=== PATIENT | female | born 1930 | race Caucasian/White ===

== ENCOUNTER 2016-12-13 13:55 | Inpatient (IN) ==
[2016-12-13] MEDS ORDERED: ASPIRIN PO STA (14:56)
[2016-12-13 15:16] LABS: BASO% 0.3 % (0.0-0.8); EOS# 0.06 X1000 (0.0-0.7); EOS% 0.9 % (0.0-10.0); HEMATOCRIT 40.3 % (37.0-47.0); HEMOGLOBIN 13.8 g/dL (12.0-16.0); LYMPH# 0.68 X1000 (1.2-3.4); LYMPH% 10.4 % (20.5-51.1); MANUAL DIFF NEEDED? NO; MCH 30.7 PG (27-31); MCHC 34.2 g/dL (33-37); MCV 89.8 FL (81-99); MONO# 0.43 X1000 (0.11-0.59); MONO% 6.6 % (1.7-9.3); NEUT% 81.8 % (42.2-75.2); PLT 144 X1000 (130-400); RBC 4.49 XMIL (4.2-5.4)
--- NOTE | 2016-12-13 15:20 | Diag Imaging Result Doc PS360 ---
CHEST-2 VIEWS - 12/13/2016 INDICATION: CP TECHNIQUE: COMPARISON: 03/21/2016 FINDINGS: There are some stable minimal peripheral pulmonary scarring particularly at the left lung base. No new or focal infiltrates. Heart size is normal. No pneumothorax or pleural effusion. IMPRESSION: No acute disease or change from prior. Electronically signed by Matt Lovett 12/13/2016 3:18 PM
--- NOTE | 2016-12-13 15:30 | EKG Report ---
Test Performed on : 12/13/2016 2:03:34 PM Test Reason : cp Blood Pressure : / mmHG Vent. Rate : 063 BPM Atrial Rate : 063 BPM P-R Int : 164 ms QRS Dur : 076 ms QT Int : 440 ms P-R-T Axes : 096 -12 042 degrees QTc Int : 450 ms Normal sinus rhythm. Moderate voltage criteria for LVH, may be normal variant Borderline ECG When compared with ECG of 21-MAR-2016 22:28, No significant change was found Unconfirmed Result
[2016-12-13] MEDS ORDERED: NITROGLYCERIN TOP ONE (15:41)
[2016-12-13 15:42] LABS: AGAP 11; ALBUMIN 4.2 g/dL (3.5-5.0); ALKALINE PHOSPHATASE 82 U/L (32-104); BUN 13 mg/dL (8-22); CALCIUM 10.2 mg/dL (8.8-10.2); CHLORIDE 99 mmol/L (98-107); CK PROFILE 54 U/L (24-173); COSMO 284; GOT 194 U/L (10-30); GPT 72 U/L (10-36); MAGNESIUM 1.7 mg/dL (1.5-2.7); POTASSIUM 3.8 mmol/L (3.5-5.1); SODIUM 141 mmol/L (136-145); TCO2 31 mmol/L (25-35); TOTAL BILIRUBIN 1.94 mg/dL (0.20-1.00); TOTAL PROTEIN 6.2 g/dL (6.3-8.3)
--- NOTE | 2016-12-13 16:56 | PROVIDER DOCUMENTATION ---
This chart was entered by Aleksandar Riddle Scribe, acting as scribe for Stanley Castañeda CRNP. HPI-Chest Pain - General Chief Complaint: Chest Pain Stated Complaint: CP Time Seen by Provider: 12/13/16 15:55 Source: patient Allergies/Adverse Reactions: Patient Allergies Allergy/AdvReac Type Severity Reaction Status Date / Time No Known Allergies Allergy Verified 12/13/16 14:40 Home Medications: Home Medication List Medication Instructions Recorded Confirmed Last Taken Type Amlodipine [Norvasc] 5 mg PO HS 01/07/16 12/13/16 12/12/16 History Metoprolol [Lopressor] 25 mg PO QAM 01/07/16 12/13/16 12/13/16 08:00 History Vit C/Dl-E AC/Lut/Copper/Znox 1 each PO BID 01/07/16 12/13/16 12/13/16 08:00 History [Preservision Softgel] ATORVAstatin [Lipitor] 20 mg PO QAM 02/24/16 12/13/16 12/13/16 08:00 History Lisinopril 20 mg PO QAM 02/24/16 12/13/16 12/13/16 08:00 History Lorazepam 1 mg PO QHS 02/24/16 12/13/16 12/12/16 History Multivitamin [Multivitamins] 1 each PO QAM 02/24/16 12/13/16 12/13/16 08:00 History Acetaminophen with Codeine 1 each PO Q4H PRN PRN 12/13/16 12/13/16 Unknown History [Tylenol with Codeine #3] Bupropion HCl [Bupropion Xl] 150 mg PO DAILY 12/13/16 12/13/16 12/13/16 08:00 History Cholecalciferol (Vitamin D3) 400 unit PO DAILY 12/13/16 12/13/16 12/13/16 08:00 History [Vitamin D] Escitalopram [Lexapro] 20 mg PO DAILY 12/13/16 12/13/16 12/13/16 08:00 History Hydrocodone/Acetaminophen [[place] 1 each PO Q4H PRN 12/13/16 12/13/16 Unknown History 5-325 Tablet] Loperamide [Imodium] 2 mg PO PRN PRN 12/13/16 12/13/16 Unknown History Risedronate [Actonel] 150 mg PO DIRECTED 12/13/16 12/13/16 11/12/16 History - History of Present Illness-CP Nature of Presenting Problem: Patient is a 86 y/o F that presents to the ER with with chest pain that radiates to her back. symptoms began this am. Denies shortness of breath, n/v, or diaphoresis. reports taken 2 nitro with mild relief but not complete relief of symptoms. History of CAD with stents. Location: reports: substernal Chest Pain Radiation: reports: back Quality of Pain: reports: aching Severity in ED: moderate Onset/Duration: abrupt, this morning Timing: still present, constant Context/Activities at Onset: reports: none Modifying Factors: improves with: nothing Associated Symptoms: reports: back pain. denies: denies symptoms, diaphoresis, dizziness, fever/chills, nausea, shortness of breath, vomiting Nitro Today/Relief: 0.4 mg x 2, provided at home, mild relief Aspirin Treatment Today: 325 mg x 1, provided by ED Prior Chest Pain/Cardiac Workup: reports: cardiac cath (with stents) Similar Symptoms Previously?: Yes Recently Seen Here or By Another Healthcare Provider: No Review of Systems - Adult - REVIEW OF SYSTEMS - ADULT Constitutional: denies: chills, fever Eyes: reports: no symptoms reported Ears, Nose, Mouth & Throat: denies: ear pain, sinus problem, throat pain, throat swelling Cardiovascular: reports: chest pain. denies: palpitations, syncope Respiratory: denies: cough, shortness of breath, wheezing Gastrointestinal: denies: abdominal pain, diarrhea, nausea, vomiting Genitourinary: reports: no symptoms reported Musculoskeletal: reports: back pain. denies: joint pain, neck pain Integumentary: reports: no symptoms reported Neurological: reports: no symptoms reported Psychiatric: reports: no symptoms reported Endocrine: reports: no symptoms reported Hematologic/Lymphatic: reports: no symptoms reported Allergic/Immunologic: reports: no symptoms reported All Other Systems: Reviewed and Negative Past History - Adult - PAST MEDICAL HISTORY-ADULT Review of Records: reports: Old Records Reviewed, Nursing Assessment Review, Medications Reviewed Cardiovascular: reports: CAD, HTN, hyperlipidemia Musculoskeletal: reports: spinal fracture (t12 compression) Neurological: reports: TIA, other (sub-dural hematoma) Psychiatric: reports: anxiety, depression Other Conditions: reports: other cancer (melanoma) - PRIOR SURGERIES/PROCEDURES Surgical/Procedure History: reports: cardiac stent, back/neck, other (skin cancer removed) - PRIOR HOSPITALIZATIONS Prior Hospitalizations: reports: none - IMMUNIZATION STATUS Childhood Immunizations: See Nurse Assessment Flu Vaccine: See Nurse Assessment - FAMILY HISTORY Family History: reviewed, not pertinent - SOCIAL HISTORY Smoking: non-smoker Living Situation: family Physical Exam-General - PHYSICAL EXAM-ADULT Initial Vital Signs Reviewed: Yes - CONSTITUTIONAL General Appearance: alert, no apparent distress - EYES Eyes: PERRL/EOMI, pink conjunctivae - HEAD, EARS, NOSE, MOUTH & THROAT HENMT: normocephalic/atraumatic, moist mucous membranes, normal ENT inspection - NECK Neck: full range of motion, normal inspection - RESPIRATORY Respiratory: lungs clear, normal breath sounds, no respiratory distress, no accessory muscle use - CARDIOVASCULAR Cardiovascular: regular rate, rhythm, no gallop, no murmur - GASTROINTESTINAL (ABDOMEN) Abdominal Exam: normal bowel sounds, non tender, soft - MUSCULOSKELETAL Extremity: normal range of motion, normal inspection, no pedal edema - SKIN Integumentary: normal color, warm/dry - NEUROLOGIC Neurologic: grossly normal, no motor/sensory deficits - PSYCHIATRIC Psych/Mental Status: normal mood/affect, normal thought content, normal thought process, oriented x 3 Progress - PLAN OF CARE/RESULTS Progress/Plan/Lab Results: Vital Signs - 8 hr 12/13/16 13:59 12/13/16 14:27 12/13/16 15:31 Temperature 98.0 F Pulse Rate 60 64 64 Respiratory Rate 18 14 18 Blood Pressure 153/69 190/76 205/125 O2 Sat by Pulse Oximetry 99 94 L 96 12/13/16 16:39 Temperature Pulse Rate 62 Respiratory Rate 14 Blood Pressure 188/165 O2 Sat by Pulse Oximetry 93 L Laboratory Results - last 24 hr 12/13/16 12/13/16 12/13/16 14:30 14:30 14:30 WBC RBC Hgb Hct MCV MCH MCHC RDW Std Deviation Plt Count MPV Immature Gran % (Auto) Neut % (Auto) Lymph % (Auto) [place] % (Auto) Eos % (Auto) Baso % (Auto) Immature Gran # (Auto) Neut # (Auto) Lymph # (Auto) [place] # (Auto) Eos # (Auto) Baso # (Auto) Sodium 141 Potassium 3.8 Chloride 99 Carbon Dioxide 31 Anion Gap 11 BUN 13 Creatinine 0.8 Estimated GFR/1.73 m2 > 60 BUN/Creatinine Ratio 16 Glucose 138 H Calculated Osmolality 284 Calcium 10.2 Magnesium 1.7 Total Bilirubin 1.94 H AST 194 H ALT 72 H Alkaline Phosphatase 82 Creatine Kinase 54 Troponin T < 0.010 Ghi-L-Hzehkfvkmpq Pept 570 H Total Protein 6.2 L Albumin 4.2 Globulin 2.0 Albumin/Globulin Ratio 2.1 12/13/16 15:03 WBC 6.54 RBC 4.49 Hgb 13.8 Hct 40.3 MCV 89.8 MCH 30.7 MCHC 34.2 RDW Std Deviation 13.9 Plt Count 144 MPV 10.0 Immature Gran % (Auto) 0.0 Neut % (Auto) 81.8 H Lymph % (Auto) 10.4 L [place] % (Auto) 6.6 Eos % (Auto) 0.9 Baso % (Auto) 0.3 Immature Gran # (Auto) 0.00 Neut # (Auto) 5.35 Lymph # (Auto) 0.68 L [place] # (Auto) 0.43 Eos # (Auto) 0.06 Baso # (Auto) 0.02 Sodium Potassium Chloride Carbon Dioxide Anion Gap BUN Creatinine Estimated GFR/1.73 m2 BUN/Creatinine Ratio Glucose Calculated Osmolality Calcium Magnesium Total Bilirubin AST ALT Alkaline Phosphatase Creatine Kinase Troponin T Hxk-K-Decsyzmvzym Pept Total Protein Albumin Globulin Albumin/Globulin Ratio Orders Category Date Time Status Cardiac Monitoring DIRECTED Care 12/13/16 14:56 Active Saline Loc NOW Care 12/13/16 14:56 Active CHEST-2 VIEWS [RAD] Stat Exams 12/13/16 14:56 Completed CBC WITH ELECTRONIC DIFF [HEME] Stat Lab 12/13/16 15:03 Completed CK PROFILE [SP CHEM] Stat Lab 12/13/16 14:30 Completed COMPREHENSIVE METABOLIC PANEL [CHEM] Stat Lab 12/13/16 14:30 Com[address] D-DIMER PL [COAG] Stat Lab 12/13/16 14:30 Ordered MAGNESIUM [CHEM] Stat Lab 12/13/16 14:30 Completed PRO B-NATRIURETIC PEPTIDE Stat Lab 12/13/16 14:30 Completed PROTIME WITH INR [COAG] Stat Lab 12/13/16 15:03 Ordered PTT [COAG] Stat Lab 12/13/16 15:03 Ordered TROPONIN T Stat Lab 12/13/16 14:30 Completed Aspirin Med 12/13/16 14:56 Discontinued 325 mg PO STAT STA Nitroglycerin Med 12/13/16 15:41 Discontinued 1 inch TOP NOW ONE EKG [EKG] Stat Ther 12/13/16 13:58 Draft Result Diagrams: 12/13/16 15:03 12/13/16 14:30 - CONSULTS/PCP/HOSPITALIST Notification #1 *Consult/PCP/Hospitalist*: Ibrahim Time Discussed: 16:55 Consult Disposition: Will see in ED, Admit Departure - Departure Date of Disposition Decision: 12/13/16 Time of Disposition Decision: 16:55 DIAGNOSIS: Chest pain Qualifiers: Chest pain type: unspecified Qualified Code(s): R07.9 - Chest pain, unspecified Disposition: ADMITTED INPATIENT 09 Certified Medical Emergency: Emergent Condition: Stable Referrals and Follow-Ups: Hans Raya MD [Primary Care Provider] - - Critical Care Note This patient required my direct & personal management of CC.: No Attestation - Physician/ DOROTHY Attestation Patient care was provided by Advanced Practice Provider:: Yes Advanced Practice Provider:: Stanley Castañeda Advanced Practice Provider documentation review:: The Mid-level provider documentation, treatment plan and medical decision making was reviewed by the physician who agrees with all treatment and medical decision making by the MLP. This chart was documented by the indicated scribe, (Aleksandar Riddle, Scribe) and accurately reflects the services I performed and decisions made by me, Stanley Castañeda CRNP, as attested by the provider's signature.
[2016-12-13 18:26] LABS: INR 1.02 (0.86-1.15); PROTIME 13.7 Seconds (12.1-15.5)
[2016-12-13 18:27] LABS: PTT PL 28.9 Seconds (22.6-43.9)
[2016-12-13] MEDS: NS 1,000 ML IV SCH ×2 (18:53→21:19)
[2016-12-13 19:17] LABS: AMYLASE 20 U/L (20-200); LIPASE 29 U/L (13-60)
[2016-12-13] MEDS ORDERED: PROTONIX PO ONE (19:18)
--- NOTE | 2016-12-13 19:35 | ED EKG INTERP ---
This chart was entered by Aleksandar Riddle Scribe, acting as scribe for Ash Elizalde MD. EKG Interpretation - EKG Time of EKG reading by physician:: 14:03 EKG Read and Signed by:: Ash Elizalde EKG Interpretation (*Must complete 3 of following elements*): Abnormal Rate: 63 Rhythm: NSR [place]: normal QRS: LVH SC Interval: normal ST Wave: normal This chart was documented by the indicated scribe, (Aleksandar Riddle Scribe) and accurately reflects the services I performed and decisions made by me, Ash Elizalde MD, as attested by the provider's signature.
--- NOTE | 2016-12-13 19:56 | HISTORY AND PHYSICAL ---
CHIEF COMPLAINT: Chest pain. HISTORY OF PRESENT ILLNESS: An 86-year-old white female with past medical history significant for atrial fibrillation, stroke, carotid artery disease, coronary artery disease status post stent placement in 2014, depression, subdural hematoma, hyperlipidemia, hypertension, impaired fasting glucose, history of melanoma, osteopenia, and insomnia who presents for evaluation of above- mentioned symptoms. Current history of present illness began this morning. The patient states she awoke feeling well. The patient ate breakfast without incident. She went to exercise class between 9 and 10 a.m. Patient states while exercising, she felt well. At approximately 10 a.m., the patient developed substernal/epigastric chest discomfort. Patient suspected this was indigestion. She took 2 Tums without improvement. Approximately 1 hour later, she took 2 additional Tums without improvement. The patient contacted the nurse at her assisted living facility. The patient was provided 2 nitroglycerin with only some improvement. Because of patient's persistent chest discomfort, my office was contacted. The patient was referred to the emergency department. Upon arrival, a full evaluation was pursued. Cardiac enzymes returned negative. EKG returned without acute disease. Nitroglycerin ointment was placed. Patient's overall condition improved. Upon my arrival, patient was chest pain free. Of note, patient had associated nausea with her underlying chest discomfort. She denied shortness of breath, vomiting, and diaphoresis. The patient's transaminases and bilirubin were noted to be elevated upon her arrival to the emergency department. PAST MEDICAL HISTORY: 1. Atrial fibrillation, rate controlled. 2. History of a brain stem stroke in 2014. 3. Carotid artery disease. 4. Coronary artery disease, status post stent placement in 2014. 5. Depression. 6. History of subdural hematoma and subarachnoid hemorrhage. 7. Hyperlipidemia. 8. Hypertension. 9. Impaired fasting glucose. 10. History of melanoma, status post wide excision into early 2009. 11. Orthostatic hypotension. 12. Osteoarthritis. 13. Osteopenia. 14. Insomnia. 15. History of a superficial squamous cell carcinoma. CURRENT MEDICATIONS: 1. Actonel 150 mg monthly. 2. Amlodipine 5 mg daily. 3. Atorvastatin 20 mg at bedtime. 4. Colace 100 mg twice daily as needed. 5. Preservation daily. 6. Lexapro 20 mg daily. 7. Wellbutrin XL 150 mg daily. 8. Lisinopril 20 mg daily. 9. Lorazepam 1 mg at bedtime. 10. Metoprolol ER 25 mg daily. 11. Vitamin D3 1000 units daily. ALLERGIES: Patient answered no known drug allergies. SOCIAL HISTORY: Patient denies tobacco, alcohol or illicit drug use. 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 She enjoys reading and traveling. She exercises as tolerated. FAMILY HISTORY: Patient's mother passed at age 87 secondary to complications of an acute myocardial infarction. Her father's history is unknown. REVIEW OF SYSTEMS: A 12 point review of systems was performed. Pertinent positives and negatives noted in history present illness. PHYSICAL EXAMINATION: VITAL SIGNS: Temperature 98 degrees, heart rate 58, respirations 16, blood pressure is 164/70. GENERAL: Elderly, no acute distress. HEENT: Normocephalic, atraumatic. Pupils equal, round, reactive to light. Extraocular muscles intact. Sclerae anicteric. [place] conjunctivae. Oral and nasopharynx clear without exudate. NECK: Supple. No lymphadenopathy. No thyromegaly. No bruits auscultated. CARDIOVASCULAR: Regular rate and rhythm. No significant murmurs, rubs, or gallops. PULMONARY: Clear to auscultation bilaterally. ABDOMEN: Soft, tender in the right upper quadrant. Nondistended. Positive bowel sounds. EXTREMITIES: Moves all extremities well. No significant clubbing, cyanosis, or edema. NEUROLOGIC: Cranial nerves 2 through 12 grossly intact. Motor and sensory grossly intact. PSYCHOLOGIC: Examination is appropriate. LABORATORY DATA: White blood cell count 6.54, hemoglobin 13.8, hematocrit 40.3, platelet count 144,000, PT 13.7, INR 1.02. PTT 28.9. D-dimer 0.30, sodium 141, potassium 3.8, chloride 99, bicarb 31, BUN 13, creatinine 0.8, glucose 138, calcium 10.2, magnesium 1.7, total bilirubin 1.94, total protein 6.2, albumin 4.2, alkaline phosphatase 82, AST 194, ALT 72. CK total 54, troponin less than 0.010. Amylase 20, lipase 29. ASSESSMENT AND PLAN: An 86-year-old white female with a past medical history as noted presents for evaluation of lower sternal chest discomfort and epigastric pain. The patient does have a history of cardiac disease, thus ischemic etiology will need to be ruled out. I am, however, more concerned in regards to her underlying transaminitis and hyperbilirubinemia. This would direct potential diagnosis to biliary etiology. Further evaluation will be described as below. 1. Admit to General Medicine. 2. Chest discomfort-as above, I suspect this may be gastrointestinal in etiology. We will, however, rule out cardiac etiology with serial cardiac enzymes and follow patient on telemetry. Should there be any abnormalities, we will have a low threshold for cardiac evaluation. 3. Transaminitis with hyperbilirubinemia and abdominal discomfort-this is concerning for biliary/gallbladder pathology. We will check a computed tomography scan of the abdomen and pelvis immediately. We will consider whether an ultrasound as necessary in the morning. We will have patient remain nothing per oral. We will follow serial laboratory evaluations as well. 4. Hypertension-patient's blood pressure was considerably elevated upon admission. Nitroglycerin paste was placed. She did receive improvement in her overall condition. We will continue nitroglycerin paste and her home medications for now. I suspect with time, nitropaste will be able to be discontinued. We will remain aware that her chest pain did improve with addition of nitroglycerin paste. 5. Hyperlipidemia-we will continue patient on atorvastatin therapy. 6. Depression/anxiety-patient has been treated with Lexapro therapy for quite some time. Within the last 2 days, Wellbutrin was added secondary to increasing symptoms. We will remain aware that a medication reaction also could have precipitated her symptoms. We will follow this. 7. Fluid, electrolyte, nutrition-we will monitor electrolytes. Normal saline at 75 mL an hour, nothing per oral. 8. Prophylaxis patient will be placed on Sequential Compression Devices. cc: Hans Raya MD
--- NOTE | 2016-12-13 19:57 | Diag Imaging Result Doc PS360 ---
ABDOMEN/PELVIS W/CONTRAST - 12/13/2016 INDICATION: Abdominal pain/ hyperbilirubinemia/ transaminitis TECHNIQUE: A CT dose reduction protocol was used. COMPARISON: 01/30/2016 FINDINGS: There is new, significant wall thickening of the gallbladder. Tiny gallstone in the gallbladder. No biliary dilation. Other abdominal organs are normal. No bowel obstruction or inflammation. There is diverticulosis of the colon. Normal appendix. Urinary bladder, uterus, and rectum are normal. At T12, there is a compression fracture with new vertebroplasty changes. IMPRESSION: Findings concerning for acute cholecystitis. No evidence of biliary obstruction. Electronically signed by Matt Lovett 12/13/2016 7:55 PM
[2016-12-13] MEDS ORDERED: ZOSYN 3.375 GM/NS 50 ML IV SCH (20:30)
[2016-12-13] MEDS ORDERED: ZOFRAN IV PRN (20:32)
[2016-12-13] MEDS ORDERED: NORCO-5 PO PRN (20:37)
[2016-12-13] MEDS ORDERED: PROTONIX IV ONE (20:44)
[2016-12-13] MEDS ORDERED: SODIUM CHLORIDE 0.9% INJ ONE (20:44)
[2016-12-13] MEDS ORDERED: NORVASC PO SCH (21:00)
[2016-12-13] MEDS: ZOSYN 3.375 GM/NS 3.375 GM/50 ML IVPB IV SCH (21:11)
[2016-12-13] MEDS: OCUVITE LUTEIN & ZEAXANTHIN PO SCH (21:12)
[2016-12-13] MEDS: ATIVAN PO SCH (21:12)
[2016-12-13] MEDS: NITROGLYCERIN TOP SCH (21:12)
--- NOTE | 2016-12-13 21:55 | CONSULTATION ---
DATE OF CONSULTATION: 12/13/2016 HISTORY OF PRESENT ILLNESS: This is an 86-year-old female with multiple medical problems, atrial fibrillation, history of intracranial bleed secondary to stroke, depression, hypertension, coronary disease with history of stents who presents with chest pain after exercising this morning at her assisted living facility. She is a patient of Dr. Raya. She was referred to the emerged department where a cardiac workup was unremarkable. However, Dr. Raya noted that she had some elevated bilirubin, transaminitis prompting CT scan that showed a dilated thickened gallbladder with stranding and stones in the lumen. She was hypertensive upon arrival. Currently she feels better. She says her pain is resolved. She had some indigestion type symptoms over the last week or two for which she had been taking Tums. Bowels have been working okay, no bleeding, no vomiting, but she does have a diminished appetite over the last couple of weeks. PAST MEDICAL HISTORY: 1. Atrial fibrillation. 2. Brainstem stroke in 2014. 3. Coronary artery disease. 4. Carotid artery disease. She had a coronary stent in 2014. 5. Depression. 6. History of subdural hematoma. 7. Subarachnoid hemorrhage. 8. Hyperlipidemia. 9. Hypertension. 10. Diabetes. 11. History of melanoma on her back. 12. Orthostatic hypotension. 13. Osteoarthritis and osteopenia. 14. History of squamous cell carcinoma. PAST SURGICAL HISTORY: Negative for abdominal surgery. SOCIAL HISTORY: She lives here in [facility]. She has lots of family. Her daughter is with here at the bedside today. She is retired from [employer] . FAMILY HISTORY: Significant for coronary disease. Negative for cancers. REVIEW OF SYSTEMS: Ten point negative except as what is mentioned HPI. PHYSICAL EXAMINATION: Vital Signs: Temperature 98.1 degrees, pulse 60, blood pressure 186/64, oxygen saturation 97% on room air. General: She is alert, in no acute distress. HEENT: There is no scleral icterus. Lymphatic: No cervical lymphadenopathy, supraclavicular or axillary lymphadenopathy. Cardiovascular: Normal rate. Regular rhythm. Pulmonary: She is on room air with no increased work of breathing. Abdomen: Mild right upper quadrant tenderness. There is no diffuse peritonitis. Abdomen is otherwise nondistended, nontender, no inguinal lymphadenopathy. Lower Extremity examination: No lower extremity edema. Otherwise well perfused. Integumentary examination: Shows warm, dry skin with no jaundice. LABS: White count 6, hematocrit 40, platelets 144,000. INR is 1.02. Potassium 3.8, creatinine 0.8, glucose 138. Bilirubin is 1.94. AST and ALT 194 and 72, alkaline phosphatase 82, amylase 20, lipase 29. Troponins are normal at less than 0.01. CT scan with p.o. and IV contrast shows wall thickening of the gallbladder, tiny gallstones but otherwise unremarkable except for some compression fracture at T12. ASSESSMENT/PLAN: This is an 86-year-old female admitted with likely acute on chronic cholecystitis, cholelithiasis noted on CT scan. She has got mild elevation of bilirubin and transaminitis. This could possibly be related to choledocholithiasis although I do not see any common bile duct dilation. I had a long discussion with the family and patient regarding risk of bleeding, infection, bile leak, damage to other structures, possible conversion to open. At time of surgery she understands this. We will plan to proceed tomorrow. Otherwise keep her NPO for now. She could have some ice chips for comfort until tonight. She is receiving IV Zosyn. We will keep this scheduled until time of surgery and we will plan for laparoscopic cholecystectomy with intraoperative cholangiogram tomorrow. We also discussed possibly requiring an ERCP should we confirm a retained stone in her common bile duct at the time of cholangiogram. We discussed this plan with Dr. Raya. We will continue to rule her out from any cardiac although her EKG and troponins have been without any acute changes. cc: MD Hans Carolina MD
[2016-12-14] MEDS: NITROGLYCERIN TOP SCH ×4 (03:12→20:02)
[2016-12-14] MEDS: ZOSYN 3.375 GM/NS 3.375 GM/50 ML IVPB IV SCH ×4 (03:12→20:02)
[2016-12-14] MEDS: NS 1,000 ML IV SCH ×4 (03:13→23:06)
[2016-12-14 08:13] LABS: MANUAL DIFF NEEDED? NO
[2016-12-14 08:25] LABS: BASO% 0.2 % (0.0-0.8); EOS# 0.17 X1000 (0.0-0.7); EOS% 4.2 % (0.0-10.0); HEMATOCRIT 38.1 % (37.0-47.0); HEMOGLOBIN 13.3 g/dL (12.0-16.0); LYMPH# 0.65 X1000 (1.2-3.4); LYMPH% 15.9 % (20.5-51.1); MCH 31.4 PG (27-31); MCHC 34.9 g/dL (33-37); MCV 90.1 FL (81-99); MONO# 0.34 X1000 (0.11-0.59); MONO% 8.3 % (1.7-9.3); MPV 9.8 FL (7.4-10.4); NEUT% 71.4 % (42.2-75.2); PLT 126 X1000 (130-400); RBC 4.23 XMIL (4.2-5.4)
[2016-12-14 08:37] LABS: AGAP 11; ALBUMIN 3.7 g/dL (3.5-5.0); ALKALINE PHOSPHATASE 96 U/L (32-104); BUN 11 mg/dL (8-22); CHLORIDE 99 mmol/L (98-107); COSMO 280; GOT 196 U/L (10-30); GPT 180 U/L (10-36); SODIUM 140 mmol/L (136-145); TCO2 30 mmol/L (25-35); TOTAL BILIRUBIN 2.41 mg/dL (0.20-1.00); TOTAL PROTEIN 5.8 g/dL (6.3-8.3)
[2016-12-14 08:46] LABS: INR 1.09; PROTIME 11.5 Seconds (9.2-11.7); PTT 25.7 Seconds (22.0-36.0)
[2016-12-14] MEDS ORDERED: LIPITOR PO SCH (09:00)
--- NOTE | 2016-12-14 12:20 | PROGRESS NOTE ---
DATE: 12/14/2016 SUBJECTIVE: She feels well. No real complaints. OBJECTIVE: Vital signs: No fevers. Temperature is 98.1 degrees, pulse 59, blood pressure 180/56, oxygen saturation 98% on room air. General: She is alert. HEENT: No scleral icterus. Abdomen: Soft. There is mild tenderness in the right upper quadrant. Integumentary: No jaundice. LABORATORY: White count is down to 4, hematocrit 38. INR is 1.09. Bilirubin is up to 2.4. AST and ALT 196 and 180, alkaline phosphatase 96. Troponins are negative. ASSESSMENT AND PLAN: This is an 86-year-old female with cholecystitis and possible choledocholithiasis. We have had a long discussion regarding risks, benefits, and alternatives. Plan to go to surgery today for laparoscopic cholecystectomy with intraoperative cholangiogram. We discussed the possibility of leaving a drain in, the possibility for need for ERCP, bleeding, infection, damage to other structures, and bile leak. She understands all of this and agrees to proceed. We have plans for her to go this afternoon. She is on antibiotics. cc: MD Hans Carolina MD
[2016-12-14] MEDS ORDERED: MARCAINE 0.25% PF/EPI 1:200,000 ONE (12:52)
[2016-12-14] MEDS ORDERED: XYLOCAINE 1% ONE (12:52)
[2016-12-14] MEDS ORDERED: LR 1,000 ML ONE (12:53)
[2016-12-14] MEDS ORDERED: SODIUM CHLORIDE 0.9% ONE (12:53)
[2016-12-14] MEDS ORDERED: AMIDATE ONE (12:57)
[2016-12-14] MEDS ORDERED: GLUCAGON ONE (13:46)
--- NOTE | 2016-12-14 14:44 | Diag Imaging Result Doc PS360 ---
OPERATIVE CHOLANGIOGRAM - 12/14/2016 INDICATION: GALLBLADDER DISEASE TECHNIQUE: The exam was performed by the patient's surgeon. Seven images were submitted. COMPARISON: CT from 12/13/2016 FINDINGS: There was good contrast filling of the hepatic biliary tree and common bile duct. The intrahepatic bile ducts appear normal. At the distal most common bile duct, there was a tiny rounded filling defect with shouldering suggesting a small minimally obstructing stone. There is very little contrast passage into the duodenum. IMPRESSION: Very small obstructing distal common bile duct stone at the papilla. Electronically signed by Matt Lovett 12/14/2016 2:42 PM
--- NOTE | 2016-12-14 15:19 | OPERATIVE NOTE ---
PROCEDURE DATE: 12/14/2016 PREOPERATIVE DIAGNOSIS: Cholecystitis. POSTOPERATIVE DIAGNOSES: 1. Cholecystitis. 2. Choledocholithiasis. PROCEDURE PERFORMED: Laparoscopic cholecystectomy with cholangiogram. SEXOLOGIST: Dr. Singer, who was present for the entirety of the case. ESTIMATED BLOOD LOSS: 10 mL. SPECIMENS: Gallbladder. ANESTHESIA: General. INDICATIONS: This 86-year-old female presented with acute epigastric abdominal pain that was radiating to her chest. Cardiac workup was negative. CT scan showed a thickened gallbladder, consistent with cholecystitis. Her bilirubin was rising over the last 24 hours , concerning for common bile duct stone. FINDINGS: There was an acutely inflamed, edematous, distended gallbladder. INTERPRETATION OF INTRAOPERATIVE CHOLANGIOGRAM: There was rapid flow of contrast through a moderate-length cystic duct into a normal-caliber common bile duct and this flowed rapidly down to a level where it became obstructed. With repeat injections and with glucagon, we were able to get a trickle of contrast to go by what looked like 2 partially-obstructing stones in the distal common bile duct above the level of the ampulla. We got retrograde reflux of contrast in the common hepatic and bilateral 2nd- and 3rd-degree biliary radicals. The pancreatic duct was not visualized. OPERATIVE NOTE: Risks, benefits, and alternatives were discussed with the patient and family, and they consented to the procedure. She was seen in the preoperative area and the surgery to be performed was confirmed. She was taken to the operating room, placed in supine position, and general anesthesia induced without complication. All bony prominence were padded. Her abdomen was prepped with chlorhexidine solution and draped in usual fashion. After time -out was performed, a curvilinear infraumbilical incision was made and dissection was carried down to the level of the fascia. The umbilical stalk was elevated with a Chin clamp and incision along the midline of the fascia was made, and entered in an open controlled fashion. The 12 mm Chad trocar was placed and the abdomen insufflated to 15 mmHg. She tolerated this well. Three more trocars were placed after inspecting the abdomen to ensure there was no injury after infiltration of the peritoneum. Three trocars of 5 mm, one in the epigastrium, one in the midclavicular line at the costal margin, and one more laterally. We grasped the gallbladder and retracted it cephalad. Starting laterally and progressing medially, we stripped down bluntly the peritoneum overlying the infundibulocystic junction and exposing this. There was an artery coursing through this triangle. We clipped this doubly and divided it. This facilitated our dissection. We carried our dissection distally down the cystic duct, completely encircling it and establishing the critical view of safety with liver only visualized through this triangle. We clipped the gallbladder and saw the cystic duct, made a ductotomy and performed the cholangiogram, with the above findings. After this, we triply clipped the cystic duct and removed this. Then we took the gallbladder out of the gallbladder fossa with care to protect from rupturing the gallbladder. This was done successfully. We placed it in an EndoCatch bag. We irrigated the abdomen and there is an area of oozing down by the cystic duct stump. I felt it unsafe to cauterize any further here. We left some Surgicel here. Lowered the pressure of insufflation and, after a minute, it was noted to be completely hemostatic. We copiously irrigated the abdomen. Given the distal obstruction, left a Sandoval drain in the gallbladder fossa. Brought it out through the lateral port and secured it with a nylon suture. I contacted Dr. Tierney regarding ERCP at that time. However, he was unavailable to do this. As such, we concluded the case. We removed the remaining trocars under direct visualization, deflated the abdomen, and brought the gallbladder out through the umbilical incision. We closed the fascia with interrupted 0 Vicryl sutures and closed the skin with running 4-0 Monocryl. Dermabond was applied. Counts Correct x2. She tolerated the procedure well. She was awoken from anesthesia and transferred to PACU. I spoke to the family. cc: MD Hans Carolina MD [facility]
[2016-12-14] MEDS: LEXAPRO PO SCH (15:40)
[2016-12-14] MEDS: OCUVITE LUTEIN & ZEAXANTHIN PO SCH ×2 (15:41→20:01)
[2016-12-14] MEDS: WELLBUTRIN XL PO SCH (15:41)
[2016-12-14] MEDS: PRINIVIL PO SCH (15:41)
[2016-12-14] MEDS: VITAMIN D PO SCH (15:42)
[2016-12-14] MEDS: TYLENOL PO PRN (16:14)
[2016-12-14] MEDS ORDERED: NORCO-5 PO PRN (17:57)
[2016-12-14] MEDS: MORPHINE IV PRN (18:25)
[2016-12-14] MEDS ORDERED: NORVASC PO ONE (18:25)
[2016-12-14] MEDS ORDERED: CATAPRES PO PRN (18:27)
--- NOTE | 2016-12-14 18:53 | PROGRESS NOTE ---
DATE: 12/14/2016 SUBJECTIVE: The patient was admitted yesterday with chest discomfort/abdominal discomfort. Laboratory data was consistent with a transaminitis and hyperbilirubinemia. CT scan confirmed a presumed acute cholecystitis. Dr. Andino was consulted. This morning, patient was feeling reasonably well. Her condition had stabilized despite progressive transaminitis and hyperbilirubinemia. The patient was taken for a laparoscopic cholecystectomy. She tolerated the procedure very well. Unfortunately, 2 common bile duct stones were noted. A drain was placed. GI was consulted and plans ERCP on Saturday. This evening, patient complains of increasing abdominal discomfort despite [place] therapy. She denies significant nausea, vomiting, shortness of breath, fevers, or chills. OBJECTIVE: T-max 98.6 degrees, heart rate 80-87, respirations 17-24, blood pressure 177 to 206 over 69 to 90. General: Elderly, uncomfortable with abdominal discomfort. Cardiovascular: Regular rate and rhythm. No significant murmurs, rubs, or gallops. Pulmonary: Clear to auscultation bilaterally. Abdomen: Soft, nondistended, tender in the right upper quadrant. Positive bowel sounds. Extremities: Moves all extremities well. No significant clubbing, cyanosis, or edema. Dermatologic: Evaluation reveals no evidence of rash. LABORATORY DATA: White blood cell count 4.09, hemoglobin 13.3, hematocrit 38.1, platelet count is 126,000. PT 11.5, INR is 1.09, PTT 25.7. Sodium 140, potassium 4.0, chloride 99, bicarb 30, BUN 11, creatinine 0.8, glucose 115. Calcium at 9.0. Total bilirubin 2.41. Total protein 5.8, albumin 3.7, alkaline phosphatase 96, AST 196, ALT 180. ASSESSMENT/PLAN: 1. Acute cholecystitis - patient is postoperative laparoscopic cholecystectomy. Unfortunately, patient does have a choledocholithiasis. We will continue Zosyn therapy and treat her underlying pain. We will plan he ERCP on Saturday. 2. Hypertension - patient's blood pressure remains considerably elevated. We will increase amlodipine to 5 mg twice daily. We will continue lisinopril and nitropaste. We will follow this closely. 3. Hyperlipidemia - we will hold patient's atorvastatin secondary to transaminitis. We will follow this. 4. Depression/anxiety - for now, we will continue Lexapro and Wellbutrin therapy. 5. Disposition - at this point, patient continues to require [facility]ci care in a hospital setting. We will plan discharge home once appropriate. cc: Hans Raya MD
[2016-12-14] MEDS: PERIDEX MT SCH (20:01)
[2016-12-14] MEDS: ATIVAN PO SCH (20:01)
[2016-12-14] MEDS: PROTONIX IV SCH (20:02)
[2016-12-14] MEDS: SODIUM CHLORIDE 0.9% INJ SCH (20:02)
[2016-12-15] MEDS: NS 1,000 ML IV SCH (00:03)
[2016-12-15] MEDS: ZOSYN 3.375 GM/NS 3.375 GM/50 ML IVPB IV SCH ×4 (02:46→20:10)
[2016-12-15] MEDS: NITROGLYCERIN TOP SCH ×3 (02:47→08:54)
[2016-12-15] MEDS: NORVASC PO SCH ×3 (03:09→20:10)
[2016-12-15 05:56] LABS: MANUAL DIFF NEEDED? NO
[2016-12-15 06:00] LABS: BASO% 0.2 % (0.0-0.8); HEMATOCRIT 36.7 % (37.0-47.0); HEMOGLOBIN 12.9 g/dL (12.0-16.0); LYMPH% 8.3 % (20.5-51.1); MCH 31.6 PG (27-31); MCHC 35.1 g/dL (33-37); MONO# 0.54 X1000 (0.11-0.59); MPV 9.8 FL (7.4-10.4); NEUT% 82.5 % (42.2-75.2); PLT 137 X1000 (130-400); RBC 4.08 XMIL (4.2-5.4)
[2016-12-15 06:24] LABS: AGAP 14; ALBUMIN 3.5 g/dL (3.5-5.0); ALKALINE PHOSPHATASE 200 U/L (32-104); BUN 13 mg/dL (8-22); CALCIUM 8.6 mg/dL (8.8-10.2); CHLORIDE 99 mmol/L (98-107); COSMO 282; GOT 412 U/L (10-30); GPT 361 U/L (10-36); POTASSIUM 3.7 mmol/L (3.5-5.1); SODIUM 141 mmol/L (136-145); TCO2 28 mmol/L (25-35); TOTAL BILIRUBIN 7.29 mg/dL (0.20-1.00); TOTAL PROTEIN 5.4 g/dL (6.3-8.3)
[2016-12-15] MEDS: PERIDEX MT SCH ×2 (08:54→20:10)
[2016-12-15] MEDS: WELLBUTRIN XL PO SCH (08:54)
[2016-12-15] MEDS: OCUVITE LUTEIN & ZEAXANTHIN PO SCH ×2 (08:54→20:10)
[2016-12-15] MEDS: LEXAPRO PO SCH (08:55)
[2016-12-15] MEDS: PRINIVIL PO SCH (08:55)
[2016-12-15] MEDS: VITAMIN D PO SCH (09:00)
--- NOTE | 2016-12-15 11:26 | PROGRESS NOTE ---
DATE: 12/15/2016 SUBJECTIVE: The patient is feeling better today. No severe pain this morning. She denies nausea or vomiting. She is tolerating a regular diet. OBJECTIVE: Vital signs: She is afebrile. Vital signs are stable. JANICE drain with 65 mL out yesterday--it is old blood. General: She is alert and oriented x3, in no acute distress. GI: Soft, appropriately tender, nondistended. Her incisions are clean, dry, and intact. LABORATORY: White blood cell count 6, hemoglobin 12.9. Her electrolytes were reviewed and are unremarkable. Liver function tests show a total bilirubin of 7.3, AST 412, ALT 361. alkaline phosphatase 200. ASSESSMENT AND PLAN: This is an 86-year-old female status post laparoscopic cholecystectomy. She has a retained common duct stone. She has elevated liver function tests. Dr. Tierney has been consulted for ERCP. We will continue her Zosyn at this time and keep her on clear liquids. cc: MD Hans Stark MD
--- NOTE | 2016-12-15 13:45 | PROGRESS NOTE ---
DATE: 12/15/2016 SUBJECTIVE: Overall, patient is considerably improved from yesterday. She complains of decreased pain. She denies nausea, vomiting, shortness of breath, or chest discomfort. The patient does have a drain intact. She is planning for ERCP to be performed on Saturday. OBJECTIVE: Vital Signs: T-max 98.3 degrees, heart rate 66-83, respirations 16-18, blood pressure 149-155/52-76. General: Well developed, elderly, no acute distress. Cardiovascular: Regular rate and rhythm. No significant murmurs, rubs, or gallops. Pulmonary: Clear to auscultation bilaterally. Abdomen: Soft. Postoperative tenderness. Nondistended. Positive bowel sounds. Extremities: Moves all extremities well. No significant clubbing, cyanosis, or edema. Dermatologic: Evaluation reveals no evidence of rash. LABORATORY DATA: White blood cell count 6.03, hemoglobin 12.9, hematocrit 36.7, platelet count 137,000. Sodium 141, potassium 3.7, chloride 99, bicarbonate 28, BUN 13, creatinine 0.8, glucose 111, calcium 8.6, total bilirubin 7.29. Total protein 5.4, albumin 3.5, alkaline phosphatase. 200 AST 412. ALT 361. ASSESSMENT AND PLAN: 1. Acute cholecystitis with associated choledocholithiasis-patient is status post laparoscopic cholecystectomy. The patient tolerated this procedure quite well. Unfortunately, patient was noted to have several stones present per cholangiogram. The patient will be continued on Zosyn therapy. We will plan ERCP on Saturday. Should patient develop fevers or signs/symptoms of ascending cholangitis, we will consider a more urgent intervention. 2. Transaminitis/hyperbilirubinemia-as above, this likely is secondary to obstructive disease. Clinically, she does appear much better than her numbers suggest. For now, we will follow and reassess labs in the morning. 3. Hyperlipidemia-we will continue to hold patient's atorvastatin secondary to transaminitis. We will remain aware. 4. Depression/anxiety-we will continue Lexapro and Wellbutrin therapy 5. Disposition-at this point, patient continues to require longterm care in the hospital setting. We will plan discharge home once appropriate. cc: Hans Raya MD
[2016-12-15] MEDS: MORPHINE IV PRN ×2 (14:07→18:43)
[2016-12-15] MEDS: SODIUM CHLORIDE 0.9% INJ SCH (20:10)
[2016-12-15] MEDS: PROTONIX IV SCH (20:10)
[2016-12-15] MEDS: ATIVAN PO SCH (20:10)
[2016-12-16] MEDS: ZOSYN 3.375 GM/NS 3.375 GM/50 ML IVPB IV SCH ×4 (02:23→19:53)
[2016-12-16] MEDS: NS 1,000 ML IV SCH ×3 (03:12→16:48)
[2016-12-16 07:52] LABS: MANUAL DIFF NEEDED? NO
[2016-12-16 07:57] LABS: BASO% 0.5 % (0.0-0.8); EOS# 0.12 X1000 (0.0-0.7); HEMATOCRIT 39.6 % (37.0-47.0); HEMOGLOBIN 13.7 g/dL (12.0-16.0); LYMPH# 0.65 X1000 (1.2-3.4); LYMPH% 10.9 % (20.5-51.1); MCH 31.6 PG (27-31); MCHC 34.6 g/dL (33-37); MCV 91.5 FL (81-99); MONO# 0.48 X1000 (0.11-0.59); MONO% 8.1 % (1.7-9.3); NEUT% 78.5 % (42.2-75.2); PLT 122 X1000 (130-400); RBC 4.33 XMIL (4.2-5.4)
[2016-12-16 08:09] LABS: AGAP 11; ALBUMIN 3.7 g/dL (3.5-5.0); ALKALINE PHOSPHATASE 179 U/L (32-104); BUN 8 mg/dL (8-22); CALCIUM 8.5 mg/dL (8.8-10.2); CHLORIDE 101 mmol/L (98-107); COSMO 282; GOT 146 U/L (10-30); GPT 224 U/L (10-36); POTASSIUM 3.7 mmol/L (3.5-5.1); SODIUM 142 mmol/L (136-145); TCO2 30 mmol/L (25-35); TOTAL BILIRUBIN 2.54 mg/dL (0.20-1.00); TOTAL PROTEIN 5.8 g/dL (6.3-8.3)
[2016-12-16] MEDS: PERIDEX MT SCH ×3 (09:30→21:28)
--- NOTE | 2016-12-16 09:35 | PROGRESS NOTE ---
DATE: 12/16/2016 SUBJECTIVE: This morning, patient is slightly confused and complains of some mild abdominal discomfort, but overall is doing reasonably well. She had adequate p.o. intake yesterday. Her energy level is low, but she was able to walk in the halls with family. She denies fevers, chills, nausea, vomiting, shortness of breath, or chest discomfort. ERCP is planned for this evening versus tomorrow. OBJECTIVE: Vital signs: T-max 99.1 degrees, heart rate 82-98, respirations 16-18, blood pressure 158 to 167 over 62 to 76. General: Well nourished, well developed, in no acute distress. Cardiovascular: Regular rate and rhythm. No significant murmurs, rubs, or gallops. Pulmonary: Clear to auscultation bilaterally. Abdomen: Soft. Postoperative tenderness, especially in the right upper quadrant. Nondistended. Positive bowel sounds. Extremities: Moves all extremities well. No significant clubbing, cyanosis, or edema. Dermatologic: Evaluation reveals no evidence of rash. LABORATORY DATA: White blood cell count 5.95, hemoglobin 13.7, hematocrit 39.6, platelet count 122,000. Sodium 142, potassium 3.7, chloride 101, bicarb 30, BUN 8, creatinine 0.8, glucose 114, calcium 8.5, total bilirubin 2.54, total protein 5.9, albumin 3.7, alkaline phosphatase 179, AST 146, ALT 224. ASSESSMENT AND PLAN: 1. Acute cholecystitis with associated choledocholithiasis - The patient is postoperative day #2 cholecystectomy. She tolerated this procedure quite well. Unfortunately, the cholangiogram demonstrated presence of several stones. Yesterday, transaminases and bilirubin increased considerably. Today, they have decreased back to an acceptable level. I suspect patient does have flow around the stones at the present time. For now, we will continue Zosyn therapy. ERCP is planned by Dr. Tierney this evening versus tomorrow. 2. Transaminitis/hyperbilirubinemia - As above, patient has achieved improvement within the last 24 hours. We will continue supportive care until ERCP is performed. 3. Hyperlipidemia - Patient's atorvastatin has been held secondary to transaminitis. We will remain aware. 4. Depression/anxiety - We will continue Lexapro and Wellbutrin therapy. 5. Constipation prevention - We will start patient on Colace twice daily while on the narcotic intervention. 6. Disposition - At this point, patient continues to require long-term care in the hospital setting. We will plan discharge home once appropriate. cc: Hans Raya MD
--- NOTE | 2016-12-16 13:33 | Diag Imaging Result Doc PS360 ---
EXAM: ERCP-BILIARY AND PANCREATIC INDICATION: ERCP COMPARISON: None. FINDINGS: Two spot fluoroscopic images were provided, which were performed during biliary stent placement by Dr. Tierney. No contrast opacified images of the common bile duct were provided. IMPRESSION: As above. Electronically signed by Ivan Hobbs 12/16/2016 1:31 PM
[2016-12-16] MEDS ORDERED: FENTANYL ONE (13:46)
[2016-12-16] MEDS ORDERED: DIPRIVAN 1% ONE ×2 (13:47)
[2016-12-16] MEDS: VITAMIN D PO SCH (14:07)
[2016-12-16] MEDS: PRINIVIL PO SCH (14:07)
[2016-12-16] MEDS: WELLBUTRIN XL PO SCH (14:07)
[2016-12-16] MEDS: NORVASC PO SCH ×3 (14:07→21:28)
[2016-12-16] MEDS: LEXAPRO PO SCH (14:07)
[2016-12-16] MEDS: OCUVITE LUTEIN & ZEAXANTHIN PO SCH ×3 (16:48→21:28)
--- NOTE | 2016-12-16 18:06 | OPERATIVE NOTE ---
PROCEDURE DATE: 12/16/2016 PROCEDURE: 1. Endoscopic retrograde cholangiogram. 2. Endoscopic sphincterotomy. 3. Basket sweep and removal of sludge in the common bile duct. 4. Stent placement. PREOP DIAGNOSES: 1. Obstructive jaundice. 2. Choledocholithiasis. POSTOP DIAGNOSES: 1. Sludge/tiny cluster of stones in the common bile duct, flushed. 2. Wide sphincterotomy done. 3. Stent placed. DESCRIPTION OF PROCEDURE: After informed consent and adequate intravenous sedation by Anesthesia, the scope introduced the esophagus, stomach and duodenum. There is some inflammatory area around the ampulla suggesting she might have passed some stones. There is bile in the duodenum. At this point, selective cholangiogram was done. I did not see any specific filling defect. A wide sphincterotomy was done at this time and a basket was introduced and flushed. I could see some sludge being flushed out. At the end of procedure there is no other filling defects. At this point a 10-[place] 5 cm stent was deployed. The scope was withdrawn. The patient tolerated the procedure well without any immediate complications. cc: MD Hans Diaz MD
[2016-12-16] MEDS: PROTONIX IV SCH ×2 (19:53→21:28)
[2016-12-16] MEDS: COLACE PO SCH ×2 (19:53→21:29)
[2016-12-16] MEDS: SODIUM CHLORIDE 0.9% INJ SCH (19:53)
[2016-12-16] MEDS: ATIVAN PO SCH ×2 (19:56→21:28)
[2016-12-16] MEDS: TYLENOL PO PRN (19:56)
[2016-12-17] MEDS: ZOSYN 3.375 GM/NS 3.375 GM/50 ML IVPB IV SCH ×2 (03:41→09:18)
[2016-12-17 07:35] LABS: MANUAL DIFF NEEDED? NO
[2016-12-17 07:46] LABS: BASO% 0.3 % (0.0-0.8); EOS# 0.13 X1000 (0.0-0.7); EOS% 1.8 % (0.0-10.0); HEMATOCRIT 40.8 % (37.0-47.0); HEMOGLOBIN 14.2 g/dL (12.0-16.0); LYMPH# 0.51 X1000 (1.2-3.4); LYMPH% 7.1 % (20.5-51.1); MCH 31.6 PG (27-31); MCHC 34.8 g/dL (33-37); MCV 90.7 FL (81-99); MONO# 0.45 X1000 (0.11-0.59); MONO% 6.2 % (1.7-9.3); NEUT% 84.6 % (42.2-75.2); PLT 157 X1000 (130-400)
[2016-12-17 08:15] LABS: AGAP 18; ALBUMIN 3.8 g/dL (3.5-5.0); ALKALINE PHOSPHATASE 168 U/L (32-104); BUN 7 mg/dL (8-22); CALCIUM 9.1 mg/dL (8.8-10.2); CHLORIDE 99 mmol/L (98-107); COSMO 285; GOT 72 U/L (10-30); GPT 163 U/L (10-36); POTASSIUM 3.1 mmol/L (3.5-5.1); SODIUM 143 mmol/L (136-145); TCO2 26 mmol/L (25-35); TOTAL BILIRUBIN 1.93 mg/dL (0.20-1.00); TOTAL PROTEIN 6.4 g/dL (6.3-8.3)
[2016-12-17] MEDS ORDERED: KLOR-CON PO ONE (08:42)
[2016-12-17] MEDS ORDERED: XYLOCAINE-MPF 2% ONE (09:10)
[2016-12-17] MEDS ORDERED: LABETALOL (DOSE) ONE (09:10)
[2016-12-17] MEDS ORDERED: NS 1,000 ML ONE (09:10)
[2016-12-17] MEDS ORDERED: ZOFRAN ONE (09:10)
[2016-12-17] MEDS: PERIDEX MT SCH (09:18)
[2016-12-17] MEDS: PRINIVIL PO SCH (09:19)
[2016-12-17] MEDS: VITAMIN D PO SCH (09:19)
[2016-12-17] MEDS: LEXAPRO PO SCH (09:19)
[2016-12-17] MEDS: NORVASC PO SCH (09:19)
[2016-12-17] MEDS: WELLBUTRIN XL PO SCH (09:19)
[2016-12-17] MEDS: COLACE PO SCH (09:19)
[2016-12-17] MEDS: OCUVITE LUTEIN & ZEAXANTHIN PO SCH (09:19)
[2016-12-17 11:21] VITALS: BP 159/69
[2016-12-17] MEDS: TYLENOL PO PRN (13:13)
--- NOTE | 2016-12-17 19:28 | PROGRESS NOTE ---
DATE: 12/17/2016 SUBJECTIVE: Patient was seen on rounds this morning and was doing well. She had some delirium overnight that was transient and she is oriented this morning now. Minimal pain. She received 1 dose of pain medicine yesterday evening. Tolerating a diet. She underwent ERCP with Dr. Tierney yesterday with stone extraction and stent placement. She seems to tolerated this well. PHYSICAL EXAM: Vital signs: Temperature is 98.5, pulse 72, blood pressure 157/67, O2 saturation 97% on 2 L nasal cannula. General: She is alert and oriented this morning. HEENT: There is no scleral icterus. Abdomen: Soft, appropriately tender. There is bruising around her port sites most significant at her umbilicus. Her JANICE drain serosanguineous. LABS: Reviewed her labs. White count normal at 7, hematocrit 40. Bilirubin is down to 1.93, AST, ALT 72, 163 and alkaline phosphatase 168. ASSESSMENT/PLAN: This is an 86-year-old female status post cholecystectomy found to have choledocholithiasis. She is doing very well. Now has had an ERCP. Her drain is clear. I removed this this morning. From a surgical standpoint she will be fine to go home. I spoke with Dr. Raya and he plans to let her go home today. She can see me back in the office in next 1-2 weeks. I have discussed soft, low-fat diet in postoperative period but encouraged nutrition as she tolerates then advancing her diet, activity as she tolerates as well. She is going home with her family. They will call if she develops fevers, nausea, vomiting, worsening abdominal pain or anything else they are concerned about. Of note she will need a stent removal by Dr. Tierney in 6 weeks. cc: MD Hans Carolina MD
--- NOTE | 2016-12-18 06:33 | DISCHARGE SUMMARY ---
ADMISSION DATE: 12/13/2016 DISCHARGE DATE: 12/17/2016 ADMISSION DIAGNOSIS: Chest discomfort. DISCHARGE DIAGNOSES: 1. Acute cholecystitis with associated choledocholithiasis. 2. Transaminitis/hyperbilirubinemia, improving. 3. Hyperlipidemia, present on arrival. 4. Depression/anxiety, present on arrival. 5. Weakness, improving. CONSULTATIONS: 1. Dr. Parker Andino with General Surgery was consulted for further evaluation and management of acute cholecystitis. 2. Dr. Tierney with GI medicine was consulted for further evaluation and management of choledocholithiasis. PROCEDURES: 1. A CT scan of the abdomen and pelvis was performed on 12/13/2016 which revealed findings concerning for acute cholecystitis. No evidence of biliary obstruction. 2. Intraoperative cholangiogram was performed on 12/13/2016 which revealed very small obstructing distal common bile duct stones at the papilla. 3. ERCP was performed on 12/16/2016 which revealed sludge/tiny cluster of stones in the common bile duct. HISTORY AND PHYSICAL EXAMINATION: See admit note. PHYSICAL EXAMINATION PRIOR TO DISCHARGE: Vital Signs: Temperature 98.5 degrees, heart rate 84, respirations 18, blood pressure is 159/69. General: Well nourished, well developed, no acute distress. Cardiovascular: Regular rate and rhythm. No significant murmurs, rubs, or gallops. Pulmonary: Clear to auscultation bilaterally. Abdomen: Soft. Postoperative tenderness, nondistended. Positive bowel sounds. Extremities: Moves all extremities well. No significant clubbing, cyanosis, or edema. Dermatologic: Evaluation reveals no evidence of rash. LABORATORY DATA: White blood cell count 7.22, hemoglobin 14.2, hematocrit 40.8, platelet count 157,000. Sodium 143, potassium 3.1, chloride 99, bicarb 7, creatinine 0.8, glucose 134, calcium 9.1, total bilirubin 1.93, total protein 6.4, albumin 3.8, alkaline phosphatase 168, AST 72, ALT 163. HOSPITAL COURSE: Patient was admitted as per history and physical examination. Hospital course per condition is as follows: 1. Acute cholecystitis with associated choledocholithiasis-upon admission, Dr. Andino was consulted. The patient was taken of the on the day after admission for laparoscopic cholecystectomy. Intraoperative cholangiogram suggested stones present. The patient was continued on IV antibiotics as needed pain medications. Dr. Tierney was consulted. An ERCP was performed as described. above. At time of discharge, patient was asymptomatic. We will plan to follow up patient closely as an outpatient. 2. Transaminitis/hyperbilirubinemia-this is likely secondary to obstructing stones. With treatment of his cholecystitis and choledocholithiasis, I expect resolution of these abnormalities. We will follow this. For now, we will hold patient's atorvastatin. 3. Hyperlipidemia-as above, we will hold patient's atorvastatin until liver function has normalized. 4. Depression/anxiety-patient was continued on Lexapro and Wellbutrin while hospitalized with adequate response. 5. Confusion-on the day prior to discharge, the patient experienced an episode of sundowning. At time of discharge, patient states she felt well. We will follow as an outpatient closely. DISCHARGE CONDITION: Good. DISPOSITION: Discharge to Assisted living facility. MEDICATIONS: 1. Acetaminophen 650 mg every 4 hours as needed. 2. Metoprolol ER 25 mg daily. 3. Preservation soft gel 1 tablet twice daily. 4. Amlodipine 5 mg at bedtime. 5. Lisinopril 20 mg daily. 6. Lorazepam 1 mg at bedtime. 7. Bupropion XL 150 mg daily. 8. Actonel 150 mg weekly. 9. Lexapro 20 mg daily. 10. Vitamin D3 400 units daily. 11. Hydrocodone/acetaminophen 1 tab 1 every 4 hours as needed. 12. Patient has been instructed to hold her Lipitor until liver function has normalized. cc: Hans Raya MD
== END 2016-12-17 14:30 ==
LOC: ED 13:55 → 4N 19:19
PROVIDERS: ADMIT Internal Medicine; ATTEND Internal Medicine
PROC: EN.ERCP (2016-12-16 12:10)